=== PATIENT | female | born 1990 | race African-American/Black ===

== ENCOUNTER 2019-09-30 13:39 | Emergency (ER) | payer OTHER, MEDICAID ==
[~2019-09-30] VITALS: Ht 165.1 cm; Wt 81.6 kg
[2019-09-30 13:40] VITALS: Ht 165.1 cm; Wt 81.6 kg
[2019-09-30 14:12] LABS: BASOPHIL % 0.3 % (0-2); PLATELET COUNT 213 x10^3mcL (130-400); RED CELL DISTRIBUTION WIDTH 13.7 % (11.5-14.5)
[2019-09-30 14:32] LABS: CALCIUM 8.6 mg/dL (8.5-10.1); CARBON DIOXIDE 31.5 mmol/L (21-32); CHLORIDE SERUM 101 mmol/L (98-107); CREATININE SERUM 0.9 mg/dL (0.6-1.0); GFR1 > 60 mL/min; GLUCOSE SERUM 108 mg/dL (74-106); POTASSIUM SERUM 4.2 mmol/L (3.5-5.1); SODIUM SERUM 136 mmol/L (136-145)
[2019-09-30 14:37] LABS: ALKALINE PHOSPHATASE 78 U/L (46-116); ALT/SGPT 30 U/L (14-59); AST/SGOT 17 U/L (15-37); BILIRUBIN TOTAL 0.5 mg/dL (0.20-1.00); CHOLESTEROL 149 mg/dL (<200); CHOLESTEROL/HDL RATIO 2.7; HDL CHOLESTEROL 55 mg/dL (40-60); LIPASE 161 IU/L (73-393); TOTAL PROTEIN, SERUM 6.9 g/dL (6.4-8.2); TRIGLYCERIDES 33 mg/dL (<150)
[2019-09-30 14:38] LABS: ALBUMIN 3.1 g/dL (3.4-5.0)
[2019-09-30 14:46] LABS: UA SPECIFIC GRAVITY 1.015 (1.005-1.035); microscopic required? YES; urine erythrocyte NEGATIVE (NEGATIVE)
[2019-09-30 14:57] LABS: T3 TOTAL 0.96 ng/mL
[2019-09-30 15:04] LABS: AMPHETAMINE QUAL UR NONE DETECTED (See below)
[2019-09-30 15:06] LABS: FREE T4 0.94 ng/dL (0.76-1.46); FREE THYROXINE INDEX 2.9 ug/dL (1.4-4.5); T4(THYROXINE) 7.7 ug/dL (4.7-13.3)
[2019-09-30 17:08] VITALS: BP 130/103
== END 2019-09-30 19:00 ==
LOC: ED 13:39
PROVIDERS: Specialist
DX: N39.0 Urinary tract infection, site not specified (principal); R55 Syncope and collapse; R53.1 Weakness; I10 Essential (primary) hypertension
CPT/HCPCS: 83880; 84439; 87804; J0696; J2405; J7030; J7060